=== PATIENT | male | born 1935 | race African-American/Black ===

== ENCOUNTER 2017-09-07 07:00 | Inpatient (IN) ==
[2017-09-07] MEDS ORDERED: SODIUM CHLORIDE 0.9% 1,000 ML IV SCH (12:30)
[2017-09-07] MEDS ORDERED: CHLORHEXIDINE 0.12% ORAL RINSE 60 ML BOTTLE SWISH/SPIT SCH (12:30)
[2017-09-07 13:02] LABS: Basophils % 0.8 % (0.0-0.8); Eosinophils # 0.2 10*3/uL (0.0-0.87); Eosinophils % 3.7 % (0.00-10.9); Hematocrit 40.2 VOL% (42.0-52.0); Hemoglobin 13.2 GM/DL (14.0-18.0); Immature Granulocytes % 0.2 %; Immature Granulocytes Absolute 0.01 #; Lymphocytes # 1.5 10*3/uL (1.4-4.0); Lymphocytes % 30.8 % (21.2-54.2); Mean Corpuscular HGB Conc 32.8 GM/DL (32-36); Mean Corpuscular Hemoglobin 29 PG (27-34); Mean Corpuscular Volume 89.1 FL (87-102); Mean Platelet Volume 9.6 FL (9.6-12.0); Monocytes # 0.6 10*3/uL (0.11-0.8); Monocytes % 12.8 % (1.7-12.7); Neutrophils # 2.5 10*3/uL (1.4-7.4); Neutrophils % 51.7 % (38.7-73.9); Platelet Count 209 T/CUMM (130-400); Red Blood Count 4.51 MC/CUMM (3.8-5.5); White Blood Count 4.8 T/CUMM (4-12)
[2017-09-07 13:57] LABS: Albumin 3.1 G/DL (3.4-5.0); Bilirubin,Total 0.4 MG/DL (0.2-1.0); Calcium 8.7 MG/DL (8.5-10.1); Osmolality,Calculated 281.3 MOS/KG (273-304); Potassium 4.6 MMOL/L (3.5-5.1); Total Protein 6.3 G/DL (6.4-8.3)
[2017-09-07] MEDS: CHLORHEXIDINE 4% SOLN 118 ML BOTTLE TOP SCH ×2 (17:48→17:54)
[2017-09-07] MEDS ORDERED: CHLORHEXIDINE 4% SOLN 118 ML BOTTLE TOP SCH (17:48)
[2017-09-08] MEDS ORDERED: ALBUTEROL 2.5 MG/3 ML NEB RESP TX ONE (05:30)
[2017-09-08] MEDS ORDERED: FAMOTIDINE 20 MG TABLET PO ONE (05:30)
[2017-09-08] MEDS ORDERED: IPRATROPIUM 500 MCG/2.5 ML NEB RESP TX ONE (05:30)
[2017-09-08] MEDS ORDERED: DIAZEPAM 5 MG TABLET PO ONE (05:30)
[2017-09-08] MEDS ORDERED: CEFUROXIME INJ 1,500 MG in SYRINGE 1 EACH IV ONE (05:30)
[2017-09-08] MEDS ORDERED: PAPAVERINE 60 MG/2 ML VIAL ONE (05:36)
[2017-09-08] MEDS ORDERED: TISSUE ADHESIVE 1 EACH APPLICATOR TOP ONE (05:36)
[2017-09-08] MEDS ORDERED: VANCOMYCIN 1,000 MG VIAL ONE (05:36)
[2017-09-08] MEDS ORDERED: CALCIUM CHLORIDE 1,000 MG/10 ML VIAL IV ONE (05:40)
[2017-09-08] MEDS ORDERED: SUFentanil 250 MCG/5 ML AMP ONE (05:40)
[2017-09-08] MEDS ORDERED: EPINEPHrine 1 MG/ML VIAL ONE ×2 (05:40→11:35)
[2017-09-08] MEDS ORDERED: FAMOTIDINE 20 MG/2 ML VIAL IV ONE (05:41)
[2017-09-08] MEDS ORDERED: VECURONIUM 10 MG VIAL IV ONE (05:41)
[2017-09-08] MEDS ORDERED: MIDAZOLAM 10 MG/2 ML VIAL ONE (05:41)
[2017-09-08] MEDS ORDERED: DEXMEDETOMIDINE 200 MCG/2 ML VIAL IV ONE (05:41)
[2017-09-08] MEDS ORDERED: TRANEXAMIC ACID 1,000 MG/10 ML VIAL ONE (05:41)
[2017-09-08] MEDS ORDERED: PHENYLEPHRINE 10 MG/1 ML VIAL IV ONE (05:42)
[2017-09-08] MEDS ORDERED: SODIUM CHLORIDE 0.9% 100 ML IV ONE (05:42)
[2017-09-08] MEDS ORDERED: SODIUM CHLORIDE 0.9% 250 ML IV ONE ×2 (05:42→12:09)
[2017-09-08] MEDS ORDERED: ePHEDrine 50 MG/ML AMP ONE (06:15)
[2017-09-08] MEDS ORDERED: PHENYLEPHRINE DRIP 0 MG/0 ML PREMIX IV ONE (07:20)
[2017-09-08] MEDS ORDERED: POTASSIUM CHLORIDE RIDER 100 ML IV ONE (07:20)
[2017-09-08] MEDS ORDERED: CALCIUM CHLORIDE 1,000 MG/10 ML SYRINGE IV ONE (07:20)
[2017-09-08] MEDS ORDERED: NITROPRUSSIDE 50 MG/2 ML VIAL ONE (07:20)
[2017-09-08] MEDS ORDERED: SODIUM BICARBONATE 50 MEQ/50 ML SYRINGE IV ONE ×2 (07:21→13:26)
[2017-09-08] MEDS ORDERED: ALBUMIN 5% 12.5 GM/250 ML VIAL IV ONE ×3 (07:21→11:04)
[2017-09-08] MEDS ORDERED: EPINEPHrine 1 MG/10 ML SYRINGE ONE (07:21)
[2017-09-08] MEDS ORDERED: CEFUROXIME 1,500 MG VIAL ONE (07:37)
[2017-09-08 07:38] LABS: ABG Base Excess 0.1 MMOL/L (-2.5-2.5); ABG HCO3 24.6 MMOL/L (20-26); ABG Oxygen Saturation 99.7 % (95-100); ABG PCO2 47.6 MM HG (35-48); ABG TCO2 23.2 MMOL/L (23-27); Glucose Heart Surgery 134 MG/DL (74-106); Hematocrit Heart Surgery 38.7 PERCENT (42-52); Hemoglobin Heart Surgery 12.6 G/DL (14.0-18.0); Ionized Calcium Arterial 1.19 MMOL/L (1.21-1.46); PCO2 Patient Temp Arterial 47.6 MMHG; Patient Temperature 37 CELCIUS; Potassium Heart/CVR 4.1 MMOL/L (3.5-5.1); Sodium Heart/CVR 138 MMOL/L (135-145)
[2017-09-08] MEDS ORDERED: SODIUM CHLORIDE 0.9% 1,000 ML IV SCH (08:00)
[2017-09-08 08:15] LABS: Apearance,Urine CLEAR (Clear); Bacteria,Urine Occasional /HPF (Few); Bilirubin,Urine Negative (Negative); Blood, Urine Moderate mg/dL (Negative); Glucose,Urine (UA) Negative (Negative); Hyaline Casts,Urine 3 /LPF (0-3); Ketones,Urine Negative (Negative); Mucus,Urine Occasional /LPF (Occasional); Nitrite,Urine Negative (Negative); Protein,Urine Negative; RBC,Urine 56 /HPF (0-4); Squamous Epithelial Cell,Urine Occasional /HPF (0-10); Urine Color Yellow (Yellow); Urine Urobilinogen < 2.0 EU/DL (0.2-1.0); WBC,Urine 1 /HPF (0-6)
[2017-09-08 09:20] LABS: Hematocrit Heart Surgery 21.3 PERCENT (42-52); Hemoglobin Heart Surgery 6.8 G/DL (14.0-18.0); PCO2 Patient Temp Venous 32.4 MM HG; PH Patient Temp Venous 7.489; PO2 Patient Temp Venous 40.5 MM HG; Potassium Heart/CVR 5.7 MMOL/L (3.5-5.1); VBG Base Excess 1.7 MEQ/L (0-4); VBG HCO3 25.8 MEQ/L (24-28); VBG Oxygen Saturation 86.5 %; VBG PCO2 37.5 MMHG (41-51); VBG PH 7.444; VBG PO2 49.7 MMHG (17-40)
[2017-09-08 09:50] LABS: Hematocrit Heart Surgery 24.2 PERCENT (42-52); Hemoglobin Heart Surgery 7.8 G/DL (14.0-18.0); PCO2 Patient Temp Venous 27.7 MM HG; PH Patient Temp Venous 7.549; PO2 Patient Temp Venous 34.3 MM HG; Potassium Heart/CVR 5.8 MMOL/L (3.5-5.1); VBG Base Excess 2.2 MEQ/L (0-4); VBG HCO3 26.2 MEQ/L (24-28); VBG Oxygen Saturation 84.5 %; VBG PCO2 33.6 MMHG (41-51); VBG PH 7.488; VBG PO2 45.2 MMHG (17-40)
[2017-09-08] MEDS ORDERED: HEPARIN/NACL 0.9% 2 UNITS/ML 500 ML IV ONE (09:56)
[2017-09-08] MEDS ORDERED: NITROGLYCERIN DRIP 50 MG/250 ML BOTTLE IV ONE (09:56)
[2017-09-08 10:23] LABS: Hematocrit Heart Surgery 27.3 PERCENT (42-52); Hemoglobin Heart Surgery 8.8 G/DL (14.0-18.0); PCO2 Patient Temp Venous 33.9 MM HG; PH Patient Temp Venous 7.454; PO2 Patient Temp Venous 39.6 MM HG; Potassium Heart/CVR 4.7 MMOL/L (3.5-5.1); VBG Base Excess 0.3 MEQ/L (0-4); VBG HCO3 24.4 MEQ/L (24-28); VBG Oxygen Saturation 78.7 %; VBG PCO2 35.6 MMHG (41-51); VBG PH 7.44; VBG PO2 42.4 MMHG (17-40)
[2017-09-08] MEDS ORDERED: THROMBIN TOPICAL (RECOMBINANT) 5,000 UNIT VIAL TOP ONE (10:49)
[2017-09-08 10:57] LABS: ABG Base Excess -4.7 MMOL/L (-2.5-2.5); ABG HCO3 20.5 MMOL/L (20-26); ABG Oxygen Saturation 99.1 % (95-100); ABG PCO2 45.6 MM HG (35-48); ABG PH 7.286 (7.35-7.45); ABG TCO2 20.7 MMOL/L (23-27); Glucose Heart Surgery 242 MG/DL (74-106); Hematocrit Heart Surgery 22.3 PERCENT (42-52); Hemoglobin Heart Surgery 7.1 G/DL (14.0-18.0); Ionized Calcium Arterial 1.28 MMOL/L (1.21-1.46); PCO2 Patient Temp Arterial 45.6 MMHG; PH Patient Temp Arterial 7.286; Patient Temperature 37 CELCIUS; Potassium Heart/CVR 3.9 MMOL/L (3.5-5.1); Sodium Heart/CVR 133 MMOL/L (135-145)
[2017-09-08] MEDS ORDERED: MAGNESIUM SULFATE 1 GM/2 ML VIAL ONE (11:03)
[2017-09-08] MEDS ORDERED: DEXTROSE 5% KCL 20 MEQ 60 MEQ/3,000 ML BAG IV ONE (11:03)
[2017-09-08] MEDS ORDERED: ALBUMIN 25% 25 GM/100 ML VIAL IV ONE (11:03)
[2017-09-08] MEDS ORDERED: SODIUM BICARBONATE 10 MEQ/10 ML SYRINGE IV ONE (11:03)
[2017-09-08] MEDS ORDERED: PROTAMINE SULFATE 50 MG/5 ML VIAL IV ONE (11:04)
[2017-09-08] MEDS ORDERED: MANNITOL 12.5 GM/50 ML VIAL IV ONE (11:04)
[2017-09-08] MEDS ORDERED: HEPARIN 10,000 UNIT/10 ML VIAL ONE (11:04)
[2017-09-08] MEDS ORDERED: FUROSEMIDE 20 MG/2 ML VIAL ONE (11:04)
[2017-09-08] MEDS ORDERED: methylPREDNISolone SOD SUC 1,000 MG/8 ML VIAL ONE (11:04)
[2017-09-08] MEDS ORDERED: SODIUM CHLORIDE 0.9% 1,000 ML IV ONE (12:09)
[2017-09-08] MEDS ORDERED: LACTATED RINGERS 1,000 ML IV ONE (12:09)
[2017-09-08] MEDS ORDERED: SEVOFLURANE 1 UNIT/15 MINUTE INH ONE (12:10)
[2017-09-08] MEDS ORDERED: MAGNESIUM SULF RIDER 2 GM in PREMIX 1 EACH IV PRN (12:25)
[2017-09-08] MEDS ORDERED: INSULIN REGULAR 100 UNIT/ML IV PRN (12:25)
[2017-09-08] MEDS ORDERED: DEXTROSE 50% 25 GM/50 ML VIAL IV PRN ×2 (12:25)
[2017-09-08] MEDS ORDERED: INSULIN REGULAR DRIP 100 ML IV SCH (12:25)
[2017-09-08] MEDS ORDERED: CALCIUM CHLORIDE 1,000 MG/10 ML SYRINGE IV PRN (12:25)
[2017-09-08] MEDS ORDERED: POTASSIUM CHLORIDE RIDER 10 MEQ in PREMIX 1 EACH IV PRN (12:25)
[2017-09-08] MEDS ORDERED: SODIUM CHLORIDE 0.9% 250 ML IV PRN (12:25)
[2017-09-08] MEDS ORDERED: ACETAMINOPHEN 650 MG SUPP RECTAL PRN (12:25)
[2017-09-08] MEDS ORDERED: MAGNESIUM SULF RIDER 4 GM in PREMIX 1 EACH IV PRN (12:25)
[2017-09-08] MEDS ORDERED: ONDANSETRON 4 MG/2 ML VIAL IV PRN (12:25)
[2017-09-08] MEDS ORDERED: MIDAZOLAM 2 MG/2 ML VIAL IV PRN (12:25)
[2017-09-08] MEDS ORDERED: CHLORHEXIDINE 4% SOLN 118 ML BOTTLE TOP PRN (12:25)
[2017-09-08 12:29] LABS: ABG Base Excess -3.5 MMOL/L (-2.5-2.5); ABG HCO3 21.4 MMOL/L (20-26); ABG Oxygen Saturation 92.9 % (95-100); ABG PCO2 53.2 MM HG (35-48); ABG PH 7.263 (7.35-7.45); ABG PO2 75.8 MM HG (80-95); ABG TCO2 22.2 MMOL/L (23-27); Glucose Heart Surgery 160 MG/DL (74-106); Hematocrit Heart Surgery 31.3 PERCENT (42-52); Hemoglobin Heart Surgery 10.1 G/DL (14.0-18.0); Potassium Heart/CVR 3.7 MMOL/L (3.5-5.1)
[2017-09-08 12:31] LABS: Basophils % 0.2 % (0.0-0.8); Eosinophils # 0.1 10*3/uL (0.0-0.87); Eosinophils % 0.5 % (0.00-10.9); Hematocrit 30.6 VOL% (42.0-52.0); Immature Granulocytes % 0.7 %; Immature Granulocytes Absolute 0.09 #; Lymphocytes # 1.2 10*3/uL (1.4-4.0); Lymphocytes % 9.6 % (21.2-54.2); Mean Corpuscular HGB Conc 32.7 GM/DL (32-36); Mean Corpuscular Hemoglobin 30 PG (27-34); Mean Corpuscular Volume 90.5 FL (87-102); Mean Platelet Volume 10.2 FL (9.6-12.0); Monocytes # 0.7 10*3/uL (0.11-0.8); Monocytes % 5.3 % (1.7-12.7); Neutrophils # 10.9 10*3/uL (1.4-7.4); Neutrophils % 83.7 % (38.7-73.9); Red Cell Distribution Width 13.6 % (9.3-17.3)
[2017-09-08 12:37] LABS: Platelet Count 151 T/CUMM (130-400); Red Blood Count 3.38 MC/CUMM (3.8-5.5)
[2017-09-08 12:40] LABS: INR 1.1; PT Patient Result 11.2 SECS
[2017-09-08 12:48] LABS: Blood Urea Nitrogen 18 MG/DL (7-18); Calcium 8.2 MG/DL (8.5-10.1); Glucose 156 MG/DL (74-106); Osmolality,Calculated 283.4 MOS/KG (273-304); Potassium 3.8 MMOL/L (3.5-5.1); Sodium 140 MMOL/L (136-145)
[2017-09-08 12:52] LABS: Lactic Acid 2.1 MMOL/L (0.4-2.0)
[2017-09-08] MEDS: ALBUMIN 5% 12.5 GM in PREMIX 1 EACH IV PRN (12:53)
[2017-09-08] MEDS: SODIUM CHLORIDE 0.45% 1,000 ML IV SCH ×2 (12:54)
[2017-09-08] MEDS ORDERED: ALBUTEROL/IPRATROPIUM 3 ML NEB RESP TX PRN (13:00)
[2017-09-08] MEDS: POTASSIUM CHLORIDE RIDER 20 MEQ in PREMIX 1 EACH IV PRN ×3 (13:25→20:19)
[2017-09-08 15:10] LABS: ABG Base Excess 1.3 MMOL/L (-2.5-2.5); ABG HCO3 27.3 MMOL/L (20-26); ABG PCO2 50.2 MM HG (35-48); ABG PH 7.354 (7.35-7.45); ABG PO2 105.1 MM HG (80-95); ABG TCO2 28.9 MMOL/L (23-27); Glucose Heart Surgery 130 MG/DL (74-106); Hemoglobin Heart Surgery 10.4 G/DL (14.0-18.0)
[2017-09-08] MEDS: ALBUTEROL/IPRATROPIUM 3 ML NEB RESP TX SCH ×2 (15:18→19:34)
[2017-09-08] MEDS ORDERED: ASPIRIN 325 MG TABLET NG ONE (15:30)
[2017-09-08] MEDS: INSULIN REGULAR 100 UNIT/ML SUBCUT SCH ×2 (15:47→20:13)
[2017-09-08 16:48] LABS: ABG HCO3 26.5 MMOL/L (20-26); ABG PH 7.325 (7.35-7.45); ABG PO2 95.1 MM HG (80-95); ABG TCO2 28.1 MMOL/L (23-27); Glucose Heart Surgery 159 MG/DL (74-106); Hemoglobin Heart Surgery 10.9 G/DL (14.0-18.0); Potassium Heart/CVR 4.8 MMOL/L (3.5-5.1)
[2017-09-08] MEDS: MORPHINE 4 MG/1 ML VIAL IV PRN (17:58)
[2017-09-08] MEDS: CEFUROXIME INJ 1,500 MG in SYRINGE 1 EACH IV SCH (19:25)
[2017-09-08] MEDS: MORPHINE 10 MG/1 ML VIAL IV PRN (19:42)
[2017-09-08 20:10] LABS: ABG Base Excess -1.4 MMOL/L (-2.5-2.5); ABG HCO3 24.5 MMOL/L (20-26); ABG Oxygen Saturation 92.2 % (95-100); ABG PCO2 46.3 MM HG (35-48); ABG PH 7.341 (7.35-7.45); ABG PO2 72.7 MM HG (80-95); ABG TCO2 25.9 MMOL/L (23-27); Glucose Heart Surgery 163 MG/DL (74-106); Hemoglobin Heart Surgery 10.2 G/DL (14.0-18.0); Potassium Heart/CVR 4.4 MMOL/L (3.5-5.1)
[2017-09-08] MEDS: CHLORHEXIDINE 0.12% ORAL RINSE 60 ML BOTTLE SWISH/SPIT SCH (20:21)
[2017-09-08] MEDS ORDERED: CHLORHEXIDINE 0.12% ORAL RINSE 60 ML BOTTLE SWISH/SPIT SCH (21:00)
[2017-09-09] MEDS: INSULIN REGULAR 100 UNIT/ML SUBCUT SCH ×6 (00:21→20:51)
[2017-09-09] MEDS: MORPHINE 10 MG/1 ML VIAL IV PRN (01:47)
[2017-09-09] MEDS: SODIUM CHLORIDE 0.45% 1,000 ML IV SCH ×2 (02:35→07:53)
[2017-09-09 04:10] LABS: Basophils % 0.1 % (0.0-0.8); Hematocrit 27.2 VOL% (42.0-52.0); Hemoglobin 8.8 GM/DL (14.0-18.0); Immature Granulocytes % 0.5 %; Lymphocytes # 0.5 10*3/uL (1.4-4.0); Lymphocytes % 2.8 % (21.2-54.2); Mean Corpuscular HGB Conc 32.4 GM/DL (32-36); Mean Corpuscular Hemoglobin 30 PG (27-34); Mean Corpuscular Volume 91.3 FL (87-102); Mean Platelet Volume 10.6 FL (9.6-12.0); Monocytes # 1.3 10*3/uL (0.11-0.8); Monocytes % 6.7 % (1.7-12.7); Neutrophils # 17.6 10*3/uL (1.4-7.4); Neutrophils % 89.9 % (38.7-73.9); Platelet Count 148 T/CUMM (130-400); Red Blood Count 2.98 MC/CUMM (3.8-5.5); White Blood Count 19.5 T/CUMM (4-12)
[2017-09-09 04:37] LABS: Calcium 7.6 MG/DL (8.5-10.1); Osmolality,Calculated 281.5 MOS/KG (273-304); Potassium 5.3 MMOL/L (3.5-5.1)
[2017-09-09 05:28] LABS: Lymphocytes 5 % (20-55); Segmented Neutrophils 92 % (50-85); Total Cells Counted 100
[2017-09-09 05:29] LABS: Burr Cells Few; Platelet Estimate Adequate; Tear Drop Cells Slight
[2017-09-09] MEDS ORDERED: FUROSEMIDE 40 MG/4 ML VIAL IV ONE (07:14)
[2017-09-09] MEDS: ALBUMIN 5% 12.5 GM in PREMIX 1 EACH IV PRN (07:26)
[2017-09-09] MEDS: ALBUTEROL/IPRATROPIUM 3 ML NEB RESP TX SCH ×4 (07:29→19:01)
[2017-09-09] MEDS: ASPIRIN EC 325 MG TABLET PO SCH (08:32)
[2017-09-09] MEDS: CEFUROXIME INJ 1,500 MG in SYRINGE 1 EACH IV SCH ×2 (08:33→23:32)
[2017-09-09] MEDS: FUROSEMIDE 40 MG TABLET PO SCH (08:34)
[2017-09-09] MEDS: CHLORHEXIDINE 0.12% ORAL RINSE 60 ML BOTTLE SWISH/SPIT SCH ×2 (09:39→21:44)
[2017-09-09] MEDS: METOPROLOL TARTRATE 25 MG TABLET PO SCH ×2 (09:51→21:45)
[2017-09-09] MEDS: MORPHINE 4 MG/1 ML VIAL IV PRN (14:05)
[2017-09-09] MEDS: ATORVASTATIN 40 MG TABLET PO SCH (21:44)
[2017-09-09] MEDS ORDERED: CEFUROXIME INJ 1,500 MG in SYRINGE 1 EACH IV SCH (23:30)
[2017-09-10] MEDS ORDERED: ALBUTEROL 2.5 MG/3 ML NEB RESP TX PRN (04:46)
[2017-09-10] MEDS ORDERED: LEVALBUTEROL 1.25 MG/3 ML NEB RESP TX PRN (04:53)
[2017-09-10 05:27] LABS: Basophils % 0.1 % (0.0-0.8); Hematocrit 22.4 VOL% (42.0-52.0); Hemoglobin 7.6 GM/DL (14.0-18.0); Immature Granulocytes % 0.8 %; Immature Granulocytes Absolute 0.14 #; Lymphocytes # 1.1 10*3/uL (1.4-4.0); Lymphocytes % 5.9 % (21.2-54.2); Mean Corpuscular HGB Conc 33.9 GM/DL (32-36); Mean Corpuscular Hemoglobin 31 PG (27-34); Mean Platelet Volume 11.2 FL (9.6-12.0); Monocytes # 1.6 10*3/uL (0.11-0.8); Monocytes % 8.7 % (1.7-12.7); Neutrophils # 15.7 10*3/uL (1.4-7.4); Neutrophils % 84.5 % (38.7-73.9); Platelet Count 158 T/CUMM (130-400); Red Blood Count 2.49 MC/CUMM (3.8-5.5); White Blood Count 18.6 T/CUMM (4-12)
[2017-09-10] MEDS ORDERED: SODIUM CHLORIDE 0.9% 1,000 ML IV PRN (05:48)
[2017-09-10 06:02] LABS: Calcium 7.8 MG/DL (8.5-10.1); Osmolality,Calculated 284.5 MOS/KG (273-304); Potassium 5.1 MMOL/L (3.5-5.1)
[2017-09-10] MEDS: ALBUTEROL/IPRATROPIUM 3 ML NEB RESP TX SCH ×4 (06:52→19:22)
[2017-09-10] MEDS: INSULIN REGULAR 100 UNIT/ML SUBCUT SCH ×6 (07:10→23:43)
[2017-09-10] MEDS ORDERED: FUROSEMIDE 40 MG/4 ML VIAL IV ONE (07:26)
[2017-09-10] MEDS ORDERED: LISINOPRIL 2.5 MG TABLET PO SCH (09:00)
[2017-09-10] MEDS: ASPIRIN EC 325 MG TABLET PO SCH (09:14)
[2017-09-10] MEDS: METOPROLOL TARTRATE 25 MG TABLET PO SCH (09:14)
[2017-09-10] MEDS: DOCUSATE SODIUM 100 MG CAPSULE PO SCH (09:14)
[2017-09-10] MEDS: FUROSEMIDE 40 MG TABLET PO SCH (09:14)
[2017-09-10] MEDS: CHLORHEXIDINE 0.12% ORAL RINSE 60 ML BOTTLE SWISH/SPIT SCH (13:14)
[2017-09-10 17:01] LABS: Basophils % 0.1 % (0.0-0.8); Hematocrit 29.2 VOL% (42.0-52.0); Immature Granulocytes % 0.7 %; Immature Granulocytes Absolute 0.14 #; Lymphocytes # 0.7 10*3/uL (1.4-4.0); Lymphocytes % 3.3 % (21.2-54.2); Mean Corpuscular HGB Conc 33.6 GM/DL (32-36); Mean Corpuscular Hemoglobin 30 PG (27-34); Mean Corpuscular Volume 89.3 FL (87-102); Mean Platelet Volume 10.7 FL (9.6-12.0); Monocytes # 1.6 10*3/uL (0.11-0.8); Monocytes % 8.1 % (1.7-12.7); Neutrophils # 17.2 10*3/uL (1.4-7.4); Neutrophils % 87.8 % (38.7-73.9); Platelet Count 148 T/CUMM (130-400); Red Cell Distribution Width 14.4 % (9.3-17.3); White Blood Count 19.7 T/CUMM (4-12)
[2017-09-10 17:19] LABS: Hemoglobin 9.8 GM/DL (14.0-18.0); Red Blood Count 3.27 MC/CUMM (3.8-5.5)
[2017-09-10 19:15] LABS: Hypochromasia Slight; Lymphocytes 3 % (20-55); Platelet Estimate Adequate; Segmented Neutrophils 92 % (50-85); Target Cells Few; Total Cells Counted 100
[2017-09-10] MEDS ORDERED: diphenhydrAMINE 50 MG/1 ML VIAL IV ONE (22:00)
[2017-09-10] MEDS: ATORVASTATIN 40 MG TABLET PO SCH (22:01)
[2017-09-10] MEDS: METOPROLOL TARTRATE 50 MG TABLET PO SCH (22:01)
[2017-09-11] MEDS: INSULIN REGULAR 100 UNIT/ML SUBCUT SCH ×5 (05:05→20:45)
[2017-09-11 05:55] LABS: Basophils % 0.1 % (0.0-0.8); Hematocrit 28.1 VOL% (42.0-52.0); Hemoglobin 9.3 GM/DL (14.0-18.0); Immature Granulocytes % 0.6 %; Lymphocytes # 0.8 10*3/uL (1.4-4.0); Lymphocytes % 4.9 % (21.2-54.2); Mean Corpuscular HGB Conc 33.1 GM/DL (32-36); Mean Corpuscular Hemoglobin 30 PG (27-34); Mean Corpuscular Volume 90.1 FL (87-102); Mean Platelet Volume 10.6 FL (9.6-12.0); Monocytes # 1.5 10*3/uL (0.11-0.8); Monocytes % 8.9 % (1.7-12.7); Neutrophils # 14.1 10*3/uL (1.4-7.4); Neutrophils % 85.5 % (38.7-73.9); Platelet Count 154 T/CUMM (130-400); Red Blood Count 3.12 MC/CUMM (3.8-5.5); Red Cell Distribution Width 14.1 % (9.3-17.3); White Blood Count 16.4 T/CUMM (4-12)
[2017-09-11 06:18] LABS: Osmolality,Calculated 288.3 MOS/KG (273-304); Potassium 4.6 MMOL/L (3.5-5.1)
[2017-09-11 06:27] LABS: Lymphocytes 6 % (20-55); Segmented Neutrophils 90 % (50-85); Total Cells Counted 100
[2017-09-11 06:28] LABS: Hypochromasia Slight; Polychromasia Slight
[2017-09-11 06:29] LABS: Platelet Estimate Adequate
[2017-09-11] MEDS: ALBUTEROL/IPRATROPIUM 3 ML NEB RESP TX SCH ×5 (07:27→19:12)
[2017-09-11] MEDS: CHLORHEXIDINE 0.12% ORAL RINSE 60 ML BOTTLE SWISH/SPIT SCH ×3 (08:12→21:12)
[2017-09-11] MEDS: METOPROLOL TARTRATE 50 MG TABLET PO SCH (08:13)
[2017-09-11] MEDS: ASPIRIN EC 325 MG TABLET PO SCH (08:13)
[2017-09-11] MEDS: FUROSEMIDE 40 MG TABLET PO SCH (08:13)
[2017-09-11] MEDS: NICOTINE 21 MG/24 HR PATCH TRANSDERM SCH (08:13)
[2017-09-11] MEDS: DOCUSATE SODIUM 100 MG CAPSULE PO SCH (08:13)
[2017-09-11] MEDS ORDERED: GLUCAGON 1 MG VIAL IM PRN (08:37)
[2017-09-11] MEDS ORDERED: DEXTROSE 50% 25 GM/50 ML VIAL IV PRN (08:37)
[2017-09-11] MEDS: amLODIPine 10 MG TABLET PO SCH (10:23)
[2017-09-11] MEDS: CARVEDILOL 6.25 MG TABLET PO SCH (20:55)
[2017-09-11] MEDS: ATORVASTATIN 40 MG TABLET PO SCH (20:55)
[2017-09-12] MEDS: INSULIN REGULAR 100 UNIT/ML SUBCUT SCH ×5 (01:14→20:32)
[2017-09-12] MEDS: CARVEDILOL 6.25 MG TABLET PO SCH ×4 (03:40→20:31)
[2017-09-12 06:11] LABS: Basophils % 0.1 % (0.0-0.8); Eosinophils # 0.1 10*3/uL (0.0-0.87); Eosinophils % 0.8 % (0.00-10.9); Hematocrit 28.1 VOL% (42.0-52.0); Hemoglobin 9.4 GM/DL (14.0-18.0); Immature Granulocytes % 0.8 %; Immature Granulocytes Absolute 0.11 #; Lymphocytes # 1.2 10*3/uL (1.4-4.0); Lymphocytes % 8.3 % (21.2-54.2); Mean Corpuscular HGB Conc 33.5 GM/DL (32-36); Mean Corpuscular Hemoglobin 30 PG (27-34); Mean Corpuscular Volume 88.6 FL (87-102); Mean Platelet Volume 10.3 FL (9.6-12.0); Monocytes # 1.5 10*3/uL (0.11-0.8); Monocytes % 10.5 % (1.7-12.7); Neutrophils % 79.5 % (38.7-73.9); Platelet Count 206 T/CUMM (130-400); Red Blood Count 3.17 MC/CUMM (3.8-5.5); Red Cell Distribution Width 14.1 % (9.3-17.3); White Blood Count 13.9 T/CUMM (4-12)
[2017-09-12 06:32] LABS: Calcium 7.5 MG/DL (8.5-10.1); Osmolality,Calculated 285.4 MOS/KG (273-304); Potassium 4.3 MMOL/L (3.5-5.1)
[2017-09-12] MEDS: ALBUTEROL/IPRATROPIUM 3 ML NEB RESP TX SCH ×5 (07:03→23:33)
[2017-09-12] MEDS: CHLORHEXIDINE 0.12% ORAL RINSE 60 ML BOTTLE SWISH/SPIT SCH ×2 (08:34→20:52)
[2017-09-12] MEDS: amLODIPine 10 MG TABLET PO SCH (08:35)
[2017-09-12] MEDS: DOCUSATE SODIUM 100 MG CAPSULE PO SCH (08:35)
[2017-09-12] MEDS: ASPIRIN EC 325 MG TABLET PO SCH (08:36)
[2017-09-12] MEDS: FUROSEMIDE 40 MG TABLET PO SCH (08:36)
[2017-09-12] MEDS: NICOTINE 21 MG/24 HR PATCH TRANSDERM SCH (08:37)
[2017-09-12] MEDS: ATORVASTATIN 40 MG TABLET PO SCH (20:32)
[2017-09-13] MEDS: CARVEDILOL 6.25 MG TABLET PO SCH ×2 (03:18→08:09)
[2017-09-13] MEDS: ALBUTEROL/IPRATROPIUM 3 ML NEB RESP TX SCH ×3 (04:53→10:35)
[2017-09-13 04:54] LABS: Basophils % 0.2 % (0.0-0.8); Eosinophils # 0.3 10*3/uL (0.0-0.87); Eosinophils % 2.5 % (0.00-10.9); Hematocrit 25.8 VOL% (42.0-52.0); Hemoglobin 8.9 GM/DL (14.0-18.0); Immature Granulocytes % 0.4 %; Immature Granulocytes Absolute 0.05 #; Lymphocytes % 9.1 % (21.2-54.2); Mean Corpuscular HGB Conc 34.5 GM/DL (32-36); Mean Corpuscular Hemoglobin 30 PG (27-34); Mean Corpuscular Volume 88.1 FL (87-102); Monocytes # 1.6 10*3/uL (0.11-0.8); Monocytes % 14.7 % (1.7-12.7); Neutrophils # 8.2 10*3/uL (1.4-7.4); Neutrophils % 73.1 % (38.7-73.9); Platelet Count 217 T/CUMM (130-400); Red Blood Count 2.93 MC/CUMM (3.8-5.5); Red Cell Distribution Width 13.9 % (9.3-17.3); White Blood Count 11.2 T/CUMM (4-12)
[2017-09-13 05:23] LABS: Calcium 7.6 MG/DL (8.5-10.1); Osmolality,Calculated 286.1 MOS/KG (273-304); Potassium 4.2 MMOL/L (3.5-5.1)
[2017-09-13 07:41] VITALS: BP 138/77
[2017-09-13] MEDS: INSULIN REGULAR 100 UNIT/ML SUBCUT SCH (08:08)
[2017-09-13] MEDS: ASPIRIN EC 325 MG TABLET PO SCH (08:09)
[2017-09-13] MEDS: FUROSEMIDE 40 MG TABLET PO SCH (08:09)
[2017-09-13] MEDS: amLODIPine 10 MG TABLET PO SCH (08:09)
[2017-09-13] MEDS: NICOTINE 21 MG/24 HR PATCH TRANSDERM SCH (08:09)
[2017-09-13] MEDS: DOCUSATE SODIUM 100 MG CAPSULE PO SCH (08:09)
[2017-09-13] MEDS: CHLORHEXIDINE 0.12% ORAL RINSE 60 ML BOTTLE SWISH/SPIT SCH (08:10)
== END 2017-09-13 12:15 | disposition home health service (06) | DRG 236 ==
LOC: N.CVR 11:42 → N.ICU 12:23 → N.CVR 09-08 07:09 → N.TELES 09-09 12:54
PROVIDERS: ADMIT Thoracic Surgery (Cardiothoracic Vascular Surgery); ATTEND Thoracic Surgery (Cardiothoracic Vascular Surgery)

== ENCOUNTER 2020-07-30 12:55 | Observation (INO) ==
[2020-07-30 13:28] LABS: Basophils # 0.1 10*3/uL (0.0-0.2); Basophils % 1.1 % (0.0-0.8); Eosinophils # 0.2 10*3/uL (0.0-0.87); Eosinophils % 3.7 % (0.00-10.9); Hematocrit 42.8 VOL% (42.0-52.0); Hemoglobin 13.4 GM/DL (14.0-18.0); Immature Granulocytes % 0.4 %; Immature Granulocytes Absolute 0.02 #; Lymphocytes # 1.2 10*3/uL (1.4-4.0); Lymphocytes % 21.5 % (21.2-54.2); Mean Corpuscular HGB Conc 31.3 GM/DL (32-36); Mean Platelet Volume 10.2 FL (9.6-12.0); Monocytes % 9.9 % (1.7-12.7); Neutrophils % 63.4 % (38.7-73.9); Platelet Count 261 T/CUMM (130-400); Red Blood Count 4.81 MC/CUMM (3.8-5.5); Red Cell Distribution Width 14.3 % (9.3-17.3); White Blood Count 5.7 T/CUMM (4-12)
[2020-07-30 13:57] LABS: Albumin 3.6 G/DL (3.4-5.0); Bilirubin,Total 0.4 MG/DL (0.2-1.0); Calcium 9.5 MG/DL (8.5-10.1); Osmolality,Calculated 283.3 MOS/KG (273-304); Potassium 4.9 MMOL/L (3.5-5.1); Total Protein 7.1 G/DL (6.4-8.2)
[2020-07-30] MEDS ORDERED: DOCUSATE SODIUM 100 MG CAPSULE PO PRN (14:40)
[2020-07-30] MEDS ORDERED: ACETAMINOPHEN 325 MG TABLET PO PRN (14:40)
[2020-07-30] MEDS ORDERED: ZALEPLON 5 MG CAPSULE PO PRN (14:40)
[2020-07-30] MEDS ORDERED: MORPHINE 4 MG/1 ML VIAL IV PRN (14:40)
[2020-07-30] MEDS ORDERED: hydrALAZINE 20 MG/1 ML VIAL IV PRN (14:40)
[2020-07-30] MEDS ORDERED: ONDANSETRON 4 MG/2 ML VIAL IV PRN (14:40)
[2020-07-30] MEDS ORDERED: DEXTROSE 50% 25 GM/50 ML VIAL IV PRN (15:56)
[2020-07-30] MEDS ORDERED: GLUCAGON 1 MG VIAL IM PRN (15:56)
[2020-07-30] MEDS ORDERED: ENOXAPARIN 40 MG/0.4 ML SYRINGE SUBCUT SCH (16:00)
[2020-07-30] MEDS: INSULIN LISPRO 100 UNIT/ML SUBCUT SCH ×2 (19:08→20:53)
[2020-07-31 06:56] LABS: Basophils # 0.1 10*3/uL (0.0-0.2); Basophils % 0.9 % (0.0-0.8); Eosinophils # 0.2 10*3/uL (0.0-0.87); Eosinophils % 3.8 % (0.00-10.9); Hematocrit 38.9 VOL% (42.0-52.0); Hemoglobin 12.4 GM/DL (14.0-18.0); Immature Granulocytes % 0.3 %; Immature Granulocytes Absolute 0.02 #; Lymphocytes # 1.2 10*3/uL (1.4-4.0); Mean Corpuscular HGB Conc 31.9 GM/DL (32-36); Mean Platelet Volume 10.3 FL (9.6-12.0); Monocytes % 10.3 % (1.7-12.7); Neutrophils % 64.7 % (38.7-73.9); Platelet Count 251 T/CUMM (130-400); Red Blood Count 4.47 MC/CUMM (3.8-5.5); Red Cell Distribution Width 14.2 % (9.3-17.3); White Blood Count 5.8 T/CUMM (4-12)
[2020-07-31 07:11] LABS: Calcium 8.6 MG/DL (8.5-10.1); Osmolality,Calculated 280.4 MOS/KG (273-304); Potassium 3.8 MMOL/L (3.5-5.1)
[2020-07-31] MEDS: INSULIN LISPRO 100 UNIT/ML SUBCUT SCH ×2 (08:54→12:32)
[2020-07-31] MEDS ORDERED: ATORVASTATIN 20 MG TABLET PO SCH (09:00)
[2020-07-31] MEDS ORDERED: amLODIPine 5 MG TABLET PO SCH (09:00)
[2020-07-31] MEDS ORDERED: ASPIRIN 325 MG TABLET PO SCH (09:00)
[2020-07-31] MEDS ORDERED: FUROSEMIDE 20 MG TABLET PO SCH (09:00)
[2020-07-31] MEDS ORDERED: NEBIVOLOL 10 MG TABLET PO SCH (09:00)
[2020-07-31] MEDS ORDERED: PANTOPRAZOLE 40 MG TABLET PO SCH (09:00)
[2020-07-31] MEDS ORDERED: LOSARTAN 50 MG TABLET PO SCH (09:00)
[2020-07-31 12:30] VITALS: BP 140/67
== END 2020-07-31 12:54 | disposition home or self-care (01) ==
LOC: N.EDINP 12:55 → N.ED 12:55 → N.TELEN 17:32
PROVIDERS: ADMIT Internal Medicine; ATTEND Internal Medicine